=== PATIENT | female | born 1985 | race Caucasian/White ===

== ENCOUNTER → 2017-06-02 | Outpatient (CLI) | payer BC ==
[~2017-06-02] MED LIST: MASON NATURAL2000 IU; PERCOCET 325 MG1 TA6 PO; PRENATAL1 TA1; TYLENOL325 M2 PO; VICODIN 5/500 505 MG PO; VICODIN ES 7501 TAB PO; ZOFRAN4 MG PO
[2017-06-02 16:22] LABS: HEMATOCRIT 37.3 % (37.0-47.0); HEMOGLOBIN 12.1 g/dl (12.0-16.0); MEAN CELL VOLUME 85.6 fl (81.0-99.0); MEAN CORPUSCULAR HGB 27.8 pg (27.0-31.0); MEAN CORPUSCULAR HGB CONC 32.4 g/dl (33.0-37.0); MEAN PLATELET VOLUME 11.1 fl (9.6-12.3); RED BLOOD COUNT 4.36 10*6/uL (4.10-5.10); RED CELL DISTRI WIDTH 13.2 % (0-14.5); WHITE BLOOD COUNT 8.6 10*3/uL (4.8-10.8)
[2017-06-02 16:41] LABS: ALBUMIN 3.5 gm/dl (3.1-4.5); ALKALINE PHOSPHATASE 72 U/L (45-117); BUN 16 mg/dl (7-24); CHLORIDE 106 mmol/L (98-107); CHOLESTEROL 145 mg/dL (<200); CREATININE 0.62 mg/dL (0.55-1.02); HDL CHOLESTEROL 53 mg/dl (40-60); LDL CHOLESTEROL 78 mg/dL (9-159); POTASSIUM 4.4 mmol/L (3.5-5.1); SGOT/AST 12 IU/L (3-35); SGPT/ALT 16 U/L (12-78); SODIUM 141 mmol/L (136-145); TRIGLYCERIDES 71 mg/dl (<150); VLDL CHOLESTEROL 14 mg/dL (6-40)
== END | disposition home or self-care (01) ==
LOC: LAB 15:53
PROVIDERS: Family Medicine
DX: E78.00 Pure hypercholesterolemia, unspecified (principal); D64.9 Anemia, unspecified; E55.9 Vitamin D deficiency, unspecified; R51 Headache

== ENCOUNTER 2017-06-19 23:46 | Emergency (ER) | payer BC ==
[~2017-06-19] VITALS: Ht 167.6 cm; Wt 65.8 kg
[2017-06-19 23:57] VITALS: BP 120/83
[2017-06-20 00:19] LABS: BILIRUBIN NEGATIVE (NEGATIVE); BLOOD 3+ (NEGATIVE); CLARITY CLEAR (CLEAR); COLOR YELLOW (YELLOW); GLUCOSE NEGATIVE (NEGATIVE); KETONE TRACE (NEGATIVE); LEUKO ESTERASE 1+ (NEGATIVE); NITRITE NEGATIVE (NEGATIVE); SPECIFIC GRAVITY 1.025 (1.005-1.030)
[2017-06-20 00:20] LABS: BACTERIA 3+; RBC 31-40 rbc/hpf (0-2)
[2017-06-20] MEDS ORDERED: MACROBID100 M1 PO (00:23)
== END 2017-06-20 00:49 | disposition home or self-care (01) ==
LOC: ED 23:46
PROVIDERS: Nurse Practitioner Family
DX: N39.0 Urinary tract infection, site not specified (principal); F10.10 Alcohol abuse, uncomplicated; Z79.899 Other long term (current) drug therapy

== ENCOUNTER 2017-12-10 18:52 | Inpatient (IN) | payer BC ==
[~2017-12-10] VITALS: Ht 165.1 cm; Wt 66.0 kg
--- NOTE | ~2017-12-10 | DS ---
[place], [place] DISCHARGE SUMMARY NAME: HEATHER QUINN UNIT #: [id number] ROOM: 411 DOCTOR: PACO HUERTA MD BIRTHDATE: [birth year] DOS: 12/12/2017 DISCHARGE DIAGNOSES: 1. Right pyelonephritis with abdominal pains, nausea, leukocytosis, fever, chills, rigors. 2. Sepsis with leukocytosis, urinary infection, fever, chills, nausea. 3. Dehydration related to nausea. 4. Pollen allergies and maxillary sinus congestion. HOSPITAL COURSE: The patient presented to the emergency department at [facility] after she was already being treated with Macrobid for urinary infection. The patient's home urine test was showing leukocytes and urine infection. The patient also had fever, chills, rigors, body aches and some urinary burning with suprapubic pains. Symptoms are not resolving, so she came to the emergency department, was found to have 19,000 white cell count. Urine and blood cultures were sent and she was considered to be septic. The patient was started on IV Rocephin in the ER and she responded very quickly. The patient's white cell count has normalized. Her fever, chills have resolved. Suprapubic pains are also gone along with no body aches anymore. The patient has recovered very quickly and will be discharged to home on oral antibiotics for 5 more days. The patient appeared to have right pyelonephritis with some nonspecific dilatation seen in the right kidney, on CAT scan showed mild fullness of the right renal collecting system, which is nonspecific. Pollen allergies and sinus congestion and allergic sinusitis treated with Claritin. Her symptoms have resolved. No headache anymore. LABORATORY DATA: Blood cultures are negative. No leukocytosis. Hemoglobin 10.5. CT scan of the abdomen and pelvis results as mentioned above. Chest x-ray was without any acute abnormality. No lactic acid elevation. DISCHARGE MANAGEMENT: Loratadine 10 mg a day for a month, Augmentin 875 mg twice a day for 5 days. Follow up with PCP within a week after discharge. [place], [place] DISCHARGE SUMMARY NAME: HEATHER QUINN UNIT #: [id number] ROOM: 411 DOCTOR: PACO HUERTA MD BIRTHDATE: [birth year] PACO HUERTA MD CM:SUSI [id number] PACO HUERTA MD 12/12/17 1513 interface
--- NOTE | ~2017-12-10 | WRIGHTHP ---
[place], [place] PATIENT HISTORY AND PHYSICAL EXAM NAME: HEATHER QUINN [facility] #: [id number] UNIT #: [id number] ROOM: 411 DOCTOR: PACO HUERTA MD BIRTHDATE: [birth year] DOS: 12/10/2017 HISTORY OF PRESENT ILLNESS: The patient is a 32-year-old female with a past medical history of POLLEN allergies. The patient presented to the Emergency Department at [facility] with complaints of discomfort in her suprapubic area, some burning in her urine starting on , 2 days ago, for which she was started on Macrobid as an outpatient and she was found to have urinary tract infection on the urine test performed at home. In the ER, the patient was having body aches, fever, chills, nausea and headache and she was looking sick. The patient was recommended for admission for sepsis because she had elevated white cell count, fever, urinary infection, nausea. After admission, the patient still has some nausea. She has sinus congestion and fullness and pressure sensation in her urinary bladder area and suprapubic area with frequency of urine. REVIEW OF SYSTEMS: CARDIOVASCULAR SYSTEM: No chest pains. LUNGS: No increasing shortness of breath. GASTROINTESTINAL: Recurrent nausea. No significant vomiting and diarrhea. HOME MEDICATIONS: The patient was taking Macrobid at home. FAMILY HISTORY: Noncontributory. ALLERGIES: No known drug allergies. PHYSICAL EXAMINATION: GENERAL: Alert and oriented x 3, in no visible distress. HEENT AND NECK: Extraocular movements are intact. Sclerae are anicteric. Oral mucosa is moist and clean. No obvious facial weakness. Neck is supple without any lymphadenopathy. No thyromegaly. No JVD. No carotid arterial bruits. LUNGS: Clear to auscultation. No wheezing. No rhonchi. CARDIOVASCULAR SYSTEM: Heart rate is regular in rate and rhythm. S1 and S2 normally audible. No significant murmur or any other abnormal cardiac sounds. ABDOMEN: Some discomfort on palpation over the suprapubic area. EXTREMITIES: Without significant cyanosis or edema. Warm to touch. CENTRAL NERVOUS SYSTEM: Alert and oriented x 3. Cranial nerves II-XII are intact. Speech is normal. The patient is able to move all extremities. Normal muscle strength. Deep tendon reflexes are equal on both sides. Plantars were downgoing. VITAL SIGNS: Blood pressure 104/64, heart rate ranging between 70 to 128 beats per minute and temperature ranging between afebrile to 99.8 degrees Fahrenheit. LABORATORY DATA: Urinalysis showing 5-10 wbc's. Chest x-ray was normal. White cell count elevated to 19,600. Lactic acid level was normal. CT scan of the abdomen and pelvis is showing some nonspecific fullness of the right renal collecting system. IMPRESSION AND PLAN: 1. Right pyelonephritis with leukocytosis, fever, chills, urinary symptoms and [place], [place] PATIENT HISTORY AND PHYSICAL EXAM NAME: HEATHER QUINN [facility] #: [id number] UNIT #: [id number] ROOM: 411 DOCTOR: PACO HUERTA MD BIRTHDATE: [birth year] urine infection. The patient failed outpatient treatment with Macrobid, although this made her urinalysis show very few pus cells in her urine. The patient's fever is subsiding with treatment with IV Rocephin and leukocytosis is improving, but not too much. The patient is being followed closely and treated with antibiotics. 2. Nausea, apparently from the patient having a urinary infection, being treated with ondansetron. 3. Leukocytosis with white cell count of 19,600, apparently related to urinary infection and sepsis, improving with treatment. 4. The patient is being hydrated with normal saline for nausea and being volume depleted. PACO HUERTA MD CM:HISPHYS:PATIENT HISTORY AND PHYSICAL EXAMINATION [id number] PACO HUERTA MD 12/11/17 1619 interface
[~2017-12-10 18:52] MED LIST changes: +MACROBID100 M1 PO
[2017-12-10 18:56] VITALS: BP 136/77
[2017-12-10 19:24] LABS: BASO # 0.1 10*3/uL (0.0-0.1); BASO % 0.3 % (0.0-1.0); EOS # 0.2 10*3/uL (0.0-0.4); EOS % 1.1 % (1.0-4.0); HEMATOCRIT 37.8 % (37.0-47.0); HEMOGLOBIN 12.2 g/dl (12.0-16.0); LYMPH # 1.5 10*3/uL (1.3-4.4); LYMPH % 7.6 % (27.0-41.0); MEAN CELL VOLUME 83.4 fl (81.0-99.0); MEAN CORPUSCULAR HGB 26.9 pg (27.0-31.0); MEAN CORPUSCULAR HGB CONC 32.3 g/dl (33.0-37.0); MEAN PLATELET VOLUME 12.1 fl (9.6-12.3); MONO # 0.6 10*3/uL (0.1-1.0); MONO % 3.1 % (3.0-9.0); NEUT # 17.1 10*3/uL (2.3-7.9); NEUT % 87.4 % (47.0-73.0); PLATELET COUNT AUTOMATED 160 10*3/uL (130-400); RED BLOOD COUNT 4.53 10*6/uL (4.10-5.10); RED CELL DISTRI WIDTH 13.1 % (0-14.5); WHITE BLOOD COUNT 19.6 10*3/uL (4.8-10.8)
[2017-12-10 19:40] LABS: ALBUMIN 3.6 gm/dl (3.1-4.5); ALKALINE PHOSPHATASE 57 U/L (45-117); BUN 11 mg/dl (7-24); CHLORIDE 107 mmol/L (98-107); POTASSIUM 3.8 mmol/L (3.5-5.1); SGOT/AST 21 IU/L (3-35); SGPT/ALT 19 U/L (12-78); SODIUM 139 mmol/L (136-145); TOTAL PROTEIN 7.5 gm/dL (6.4-8.2)
[2017-12-10 19:45] LABS: TROPONIN I < 0.015 ng/ml (<0.045)
[2017-12-10 19:46] LABS: BILIRUBIN NEGATIVE (NEGATIVE); BLOOD NEGATIVE (NEGATIVE); CLARITY CLEAR (CLEAR); COLOR YELLOW (YELLOW); GLUCOSE NEGATIVE (NEGATIVE); KETONE NEGATIVE (NEGATIVE); LEUKO ESTERASE NEGATIVE (NEGATIVE); NITRITE NEGATIVE (NEGATIVE); PH 8.5 (5.0-9.0); SPECIFIC GRAVITY 1.015 (1.005-1.030)
[2017-12-10 19:57] LABS: RBC 0-2 rbc/hpf (0-2)
[2017-12-10 20:01] VITALS: BP 99/58
[2017-12-10 20:13] VITALS: BP 105/64
[2017-12-10 20:44] VITALS: BP 99/63
[2017-12-10 21:30] VITALS: BP 100/61
[2017-12-10 22:41] VITALS: BP 100/68
[2017-12-11 07:41] LABS: BASO # 0.1 10*3/uL (0.0-0.1); BASO % 0.5 % (0.0-1.0); EOS # 0.5 10*3/uL (0.0-0.4); EOS % 4.8 % (1.0-4.0); HEMATOCRIT 33.1 % (37.0-47.0); HEMOGLOBIN 10.5 g/dl (12.0-16.0); LYMPH # 1.9 10*3/uL (1.3-4.4); LYMPH % 17.3 % (27.0-41.0); MEAN CORPUSCULAR HGB 27.3 pg (27.0-31.0); MEAN CORPUSCULAR HGB CONC 31.7 g/dl (33.0-37.0); MEAN PLATELET VOLUME 11.9 fl (9.6-12.3); MONO # 0.5 10*3/uL (0.1-1.0); MONO % 4.3 % (3.0-9.0); NEUT # 7.9 10*3/uL (2.3-7.9); NEUT % 72.7 % (47.0-73.0); PLATELET COUNT AUTOMATED 141 10*3/uL (130-400); RED BLOOD COUNT 3.85 10*6/uL (4.10-5.10); RED CELL DISTRI WIDTH 13.3 % (0-14.5); WHITE BLOOD COUNT 10.8 10*3/uL (4.8-10.8)
[2017-12-11 08:00] VITALS: BP 97/58
[2017-12-11 08:07] LABS: BUN 9 mg/dl (7-24); CHLORIDE 112 mmol/L (98-107); CREATININE 0.65 mg/dL (0.55-1.02); POTASSIUM 3.7 mmol/L (3.5-5.1); SODIUM 144 mmol/L (136-145)
[2017-12-11 12:00] VITALS: BP 104/64
[2017-12-11 16:00] VITALS: BP 100/54
[2017-12-11 20:00] VITALS: BP 108/66
[2017-12-12] VITALS: BP 107/62
[2017-12-12 06:58] LABS: BASO % 0.6 % (0.0-1.0); EOS # 0.5 10*3/uL (0.0-0.4); EOS % 6.9 % (1.0-4.0); HEMATOCRIT 33.3 % (37.0-47.0); HEMOGLOBIN 10.5 g/dl (12.0-16.0); LYMPH # 2.3 10*3/uL (1.3-4.4); LYMPH % 34.9 % (27.0-41.0); MEAN CELL VOLUME 85.8 fl (81.0-99.0); MEAN CORPUSCULAR HGB 27.1 pg (27.0-31.0); MEAN CORPUSCULAR HGB CONC 31.5 g/dl (33.0-37.0); MEAN PLATELET VOLUME 12.1 fl (9.6-12.3); MONO # 0.4 10*3/uL (0.1-1.0); MONO % 6.2 % (3.0-9.0); NEUT # 3.4 10*3/uL (2.3-7.9); NEUT % 51.2 % (47.0-73.0); PLATELET COUNT AUTOMATED 146 10*3/uL (130-400); RED BLOOD COUNT 3.88 10*6/uL (4.10-5.10); RED CELL DISTRI WIDTH 13.2 % (0-14.5); WHITE BLOOD COUNT 6.6 10*3/uL (4.8-10.8)
[2017-12-12 08:00] VITALS: BP 105/58
[2017-12-12 12:00] VITALS: BP 113/68
[2017-12-12] MEDS ORDERED: AUGMENTIN 875-875 MG PO (14:04)
[2017-12-12] MEDS ORDERED: GOOD NEIGHBOR L10 MG PO (14:04)
== END 2017-12-12 14:44 | disposition home or self-care (01) | DRG 872 ==
LOC: ED 18:52 → EDHOLD 22:22 → 4E 22:32
PROVIDERS: Internal Medicine; Nurse Practitioner Family
DX: A41.9 Sepsis, unspecified organism (principal); N12 Tubulo-interstitial nephritis, not specified as acute or chronic; E86.0 Dehydration; R09.81 Nasal congestion; Z83.3 Family history of diabetes mellitus; Z80.8 Family history of malignant neoplasm of other organs or systems; Z82.5 Family history of asthma and other chronic lower respiratory diseases

== ENCOUNTER → 2020-03-13 | Outpatient (CLI) | payer BC ==
[~2020-03-13] MED LIST changes: +AUGMENTIN 875-875 MG PO; +GOOD NEIGHBOR L10 MG PO
== END | disposition home or self-care (01) ==
LOC: MAMMO 01:39
PROVIDERS: ATTEND Obstetrics & Gynecology
DX: Z98.82 Breast implant status (principal); R73.03 Prediabetes

== ENCOUNTER → 2021-04-18 | Outpatient (CLI) | payer BC ==
[2021-04-18 15:30] LABS: BASO % 0.3 % (0.0-1.0); EOS # 0.1 10*3/uL (0.0-0.4); HEMATOCRIT 38.2 % (37.0-47.0); LYMPH % 14.5 % (27.0-41.0); MEAN CELL VOLUME 85.1 fl (81.0-99.0); MEAN CORPUSCULAR HGB 27.4 pg (27.0-31.0); MEAN CORPUSCULAR HGB CONC 32.2 g/dl (33.0-37.0); MONO # 0.4 10*3/uL (0.1-1.0); MONO % 6.2 % (3.0-9.0); NEUT # 5.5 10*3/uL (2.3-7.9); NEUT % 76.9 % (47.0-73.0); PLATELET COUNT AUTOMATED 198 10*3/uL (130-400); RED BLOOD COUNT 4.49 10*6/uL (4.10-5.10); RED CELL DISTRI WIDTH 12.7 % (0-14.5); WHITE BLOOD COUNT 7.1 10*3/uL (4.8-10.8)
[2021-04-18 16:00] LABS: ALBUMIN 3.5 gm/dl (3.1-4.5); ALKALINE PHOSPHATASE 58 U/L (45-117); BUN 19 mg/dl (7-24); CHLORIDE 103 mmol/L (98-107); CHOLESTEROL 158 mg/dL (<200); CREATININE 0.85 mg/dL (0.55-1.02); FREE T4 1.06 ng/dl (0.76-1.46); LDL CHOLESTEROL 84 mg/dL (9-159); POTASSIUM 4.1 mmol/L (3.5-5.1); SGOT/AST 12 IU/L (3-35); SGPT/ALT 21 U/L (12-78); SODIUM 138 mmol/L (136-145); TOTAL PROTEIN 7.2 gm/dL (6.4-8.2); TRIGLYCERIDES 71 mg/dl (<150)
[2021-04-19 09:07] LABS: FOLLICLE STIMULATING HORMONE 5.2 mIU/mL (.); LUTEINIZING HORMONE 9.4 mIU/mL (.)
[2021-04-25 12:07] LABS: TESTOSTERONE FREE, (DIRECT) 1.8 pg/mL (0.0-4.2)
== END | disposition home or self-care (01) ==
LOC: LAB 15:08
PROVIDERS: ATTEND Family Medicine
DX: Z00.00 Encounter for general adult medical examination without abnormal findings (principal); R51.9 Headache, unspecified; E55.9 Vitamin D deficiency, unspecified; R42 Dizziness and giddiness

== ENCOUNTER → 2021-12-02 | Outpatient (CLI) | payer BC | END | disposition home or self-care (01) | LOC: MAMMO 08:09 | PROVIDERS: ATTEND Nurse Practitioner Women's Health | DX: N63.20 Unspecified lump in the left breast, unspecified quadrant (principal); Z80.3 Family history of malignant neoplasm of breast; Z98.82 Breast implant status ==

== ENCOUNTER → 2022-05-12 | Outpatient (CLI) | payer BC ==
[2022-05-12 09:46] LABS: HEMATOCRIT 39.2 % (37.0-47.0); MEAN CORPUSCULAR HGB 27.8 pg (27.0-31.0); MEAN CORPUSCULAR HGB CONC 32.7 g/dl (33.0-37.0); RED BLOOD COUNT 4.61 10*6/uL (4.10-5.10); RED CELL DISTRI WIDTH 13.1 % (0-14.5); WHITE BLOOD COUNT 5.6 10*3/uL (4.8-10.8)
[2022-05-12 10:11] LABS: ALKALINE PHOSPHATASE 70 U/L (45-117); BUN 13 mg/dl (7-24); CHLORIDE 106 mmol/L (98-107); CHOLESTEROL 149 mg/dL (<200); CREATININE 0.69 mg/dL (0.55-1.02); POTASSIUM 3.5 mmol/L (3.5-5.1); SGOT/AST 14 IU/L (3-35); SGPT/ALT 18 U/L (12-78); SODIUM 140 mmol/L (136-145); TOTAL PROTEIN 7.5 gm/dL (6.4-8.2); TRIGLYCERIDES 42 mg/dl (<150)
[2022-05-12 10:12] LABS: LDL CHOLESTEROL 86 mg/dL (9-159)
== END | disposition home or self-care (01) ==
LOC: LAB 09:18
PROVIDERS: ATTEND Family Medicine
DX: Z00.00 Encounter for general adult medical examination without abnormal findings (principal); K92.1 Melena; M67.461 Ganglion, right knee

== ENCOUNTER → 2022-05-22 | Outpatient (CLI) | payer BC | END | disposition home or self-care (01) | LOC: CT 00:16 | PROVIDERS: ATTEND Surgery | DX: Z12.11 Encounter for screening for malignant neoplasm of colon (principal); K76.89 Other specified diseases of liver ==

== ENCOUNTER → 2022-05-28 | Day surgery (SDC) | payer BC ==
[~2022-05-28] VITALS: Ht 167.6 cm; Wt 63.5 kg
[~2022-05-28] MED LIST changes: +DICYCLOMINE HCL10 MG PO
[2022-05-28 06:56] VITALS: BP 114/76
[2022-05-28 07:49] VITALS: BP 104/53
[2022-05-28 07:54] VITALS: BP 100/62
[2022-05-28 08:05] VITALS: BP 93/57
== END | disposition home or self-care (01) ==
LOC: SDC 05-21 09:30
PROVIDERS: ATTEND Surgery
DX: R19.4 Change in bowel habit (principal); K62.5 Hemorrhage of anus and rectum; R14.1 Gas pain

== ENCOUNTER → 2024-05-16 | Outpatient (CLI) | payer BC | END | disposition home or self-care (01) | LOC: MAMMO 04:20 | PROVIDERS: ATTEND Obstetrics & Gynecology | DX: Z12.39 Encounter for other screening for malignant neoplasm of breast (principal); Z98.82 Breast implant status ==

== ENCOUNTER → 2024-05-30 | Outpatient (CLI) | payer BC ==
[2024-05-30 14:53] LABS: HEMATOCRIT 42.8 % (37.0-47.0); MEAN CELL VOLUME 85.4 fl (81.0-99.0); MEAN CORPUSCULAR HGB 27.1 pg (27.0-31.0); MEAN CORPUSCULAR HGB CONC 31.8 g/dl (33.0-37.0); MEAN PLATELET VOLUME 11.4 fl (9.6-12.3); RED BLOOD COUNT 5.01 10*6/uL (4.10-5.10); RED CELL DISTRI WIDTH 13.1 % (0-14.5); WHITE BLOOD COUNT 8.9 10*3/uL (4.8-10.8)
[2024-05-30 15:34] LABS: ALKALINE PHOSPHATASE 60 U/L (46-116); BUN 13 mg/dl (9-23); CHLORIDE 105 mmol/L (98-107); POTASSIUM 3.4 mmol/L (3.4-5.1); SGPT/ALT 12 U/L (5-49); TOTAL PROTEIN 7.4 gm/dL (6.0-8.0)
== END | disposition home or self-care (01) ==
LOC: LAB 14:19
PROVIDERS: ATTEND Family Medicine
DX: Z00.00 Encounter for general adult medical examination without abnormal findings (principal); R50.9 Fever, unspecified; R05.9 Cough, unspecified